=== PATIENT | female | born 1985 ===

== ENCOUNTER 2017-03-14 09:35 | Day surgery (SDC) | payer OTHER ==
[2017-03-14 10:23] VITALS: O2SAT 100
[2017-03-14] MEDS ORDERED: Propofol 10 mg/ml Inj (20 ML) ONE (11:21)
[2017-03-14] MEDS ORDERED: Midazolam 2 MG/2 ML VIAL ONE (11:21)
[2017-03-14] MEDS ORDERED: Lactated Ringer's 1,000 ML IV ONE ×2 (11:33→14:00)
[2017-03-14] MEDS ORDERED: cefOXitin IV 2 gm in Dextrose 2 GM/50 ML BAG IVPB ONE (11:46)
[2017-03-14] MEDS ORDERED: Methylene Blue 10 mg/mL(10ml) IV ONE (11:46)
[2017-03-14] MEDS ORDERED: Neostigmine Methylsulfate 3mg/3ml Syringe IV ONE (13:18)
--- NOTE | 2017-03-14 13:22 | PCM.SURG1 ---
Surgeon's Initial Post Op Note - Surgeon's Notes Surgeon: Dr. Olivia Exhaust Equipment Operator: Dr. Miranda Type of Anesthesia: General LMA Anesthesia Administered By: Dr. Davila Pre-Operative Diagnosis: 31 yo with Chronic pelvic pain , Irregular mentrual cycle , endometrial polyp, Menorrhagia Operative Findings: RV uterus , with PCOS OVARIES, nL TUBES , Multiple scar tissue Post-Operative Diagnosis: 31 yo with Endometrial polyp, menorrhagia, irregular mentrual cycle , Chronic pelvic pain, PCOS , BILATERAL TUBES ARE PATENT Operation Performed: Hysteroscopy Myosure, D and C and Laparoscopy , Ovarian Drilling , Chemotubation ,BAYLEE Specimen/Specimens Removed: emc,ecc Estimated Blood Loss: EBL {In ML}: 10 Blood Products Given: N/A Drains Used: No Drains Post-Op Condition: Good Date of Surgery/Procedure: 03/14/17 Time of Surgery/Procedure: 13:25
[2017-03-14] MEDS ORDERED: Oxycodone/Acetaminophen 5/325 mg Tab PO PRN (13:26)
[2017-03-14] MEDS ORDERED: Lactated Ringer's 1,000 ML IV SCH (14:00)
[2017-03-14 18:47] VITALS: BP 106/59; PULSE 84; RESP 18; TEMP 98.3
--- NOTE | 2017-03-14 23:38 | OP ---
PROCEDURE DATE: 03/14/2017 PREOPERATIVE DIAGNOSES: A 31-year-old female with history of menorrhagia, irregular menstrual period, as well as endometrial polyp, chronic pelvic pain. POSTOPERATIVE DIAGNOSES: Menorrhagia, irregular menstrual period, chronic pelvic pain, endometrial polyp,evidence of some scar tissue from prior surgical procure. On chromopertubation, bilateral tubes were patent, and evidence of polycystic ovaries. PROCEDURES: Hysteroscopy, MyoSure, dilation and curettage, laparoscopy, ovarian drilling, chromopertubation, and some lysis of adhesions. SURGEON: Shanae Olivia MD. BLANCHARD GRINDER OPERATOR: Dr. Ortega. TYPE OF ANESTHESIA: General. ANESTHESIA ADMINISTERED BY: Fanny Munoz MD. FINDINGS: Retroverted uterus of approximately 10 weeks' gestation, noted to have an endometrial polyp as well as some scar tissue from previous surgery, polycystic ovaries. COMPLICATIONS: None. ESTIMATED BLOOD LOSS: 50 mL. INPUT AND OUTPUT: 100 mL. SPECIMEN: EMC, ECC. URINE OUTPUT: 200 mL. IV FLUIDS: 1 liter. DESCRIPTION OF PROCEDURE: The patient was informed of the risk, benefits, and alternatives of the procedure. Risk factors included infection, bleeding, damage of surrounding organs and tissues, complications from anesthesia, and possible . After informed consent was obtained, she was then taken to the operating room, prepped and draped in normal sterile fashion, placed in dorsal lithotomy position. A weighted-speculum was placed into the vagina. The anterior lip of the cervix was grasped with a single-toothed tenaculum. The uterus was gently sounded to approximately 8 cm. Upon complete uterine dilation, the hysteroscope was then placed. A complete surveillance of the uterine cavity was then performed, which demonstrated she had an endometrial polyp. Under direct visualization, the MyoSure device was then activated and the endometrial polyp was removed as well as some sampling of the endometrial canal. In that particular instance, the scope was then removed and a fractional D and C was performed. Specimen was submitted to Pathology. Excellent hemostasis was noted. HUMI was then advanced in order to manipulate the uterus. Attention was then turned to the umbilical cord with a 5 optic view trocar was introduced under direct visualization, 4 liters of CO2 gas was given and a complete surveillance of the cavity was then performed. A second trocar was placed suprapubic and another one was placed under direct visualization on the left lower quadrant. Surveillance of the cavity revealed that she had multiple scar tissues due to her previous . There was evidence of polycystic ovaries. Ovarian drilling was performed. Excellent hemostasis was noted. In that particular instance, chromopertubation was performed, which demonstrated that bilateral tubes were patent. It was also noted that she has some scar tissues. Lysis of adhesion was then performed. Upon completion, the trocar was removed under direct visualization. Excellent hemostasis was noted as well as trocar and the umbilicus. The skin was closed with 3-0 Monocryl. Upon completion, all instruments also were removed from the vagina. Instrument and lap count were correct x2. The patient was then taken to recovery room in stable condition, and instructed to follow up in the office in approximately 2 weeks. Shanae Olivia MD
== END 2017-03-14 18:47 | disposition home or self-care (01) ==
LOC: C.SDS 09:35
PROVIDERS: ATTEND Obstetrics & Gynecology
DX: N92.0 Excessive and frequent menstruation with regular cycle (principal); N94.9 Unspecified condition associated with female genital organs and menstrual cycle; N84.0 Polyp of corpus uteri; E28.2 Polycystic ovarian syndrome
CPT/HCPCS: 49320; 58558; J1170; J2250; J2405; J2704; J2710; J3010; J7120